=== PATIENT | female | born 1970 | race Caucasian/White ===

== ENCOUNTER 2021-12-10 02:22 | Emergency (ER) | payer SELFPAY ==
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
[2021-12-10 02:37] VITALS: BP 136/74; PULSE 86; RESP 14; TEMP 36.7; O2SAT 98; BMI 39.8
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
== END 2021-12-10 05:07 | disposition home or self-care (01) ==
LOC: HO.ED 04:43
PROVIDERS: Emergency Provider Emergency Medicine
DX: S80.02XA Contusion of left knee, initial encounter (principal); S70.02XA Contusion of left hip, initial encounter; M25.552 Pain in left hip; M25.562 Pain in left knee; M54.2 Cervicalgia; F10.129 Alcohol abuse with intoxication, unspecified; Y90.9 Presence of alcohol in blood, level not specified; V43.52XA Car driver injured in collision with other type car in traffic accident, initial encounter; Y93.9 Activity, unspecified; Y92.410 Unspecified street and highway as the place of occurrence of the external cause; Y99.9 Unspecified external cause status; Z79.899 Other long term (current) drug therapy
CPT/HCPCS: 72040; 73502; 73560; 99283